=== PATIENT | female | born 1980 | race Caucasian/White ===

== ENCOUNTER 2024-09-29 10:57 | Emergency (ER) | payer BC, SELFPAY ==
[2024-09-29 11:00] VITALS: BP 128/72
--- NOTE | 2024-09-29 12:54 | ED.GENMED ---
History of Present Illness
<Carole Humphrey DO, Resident - Last Filed: 09/30/24 06:01>
General
Chief Complaint: Headache
Time Seen by Provider: 09/29/24 12:24
Nursing documentation reviewed up to this point in time: agreed with
History of Present Illness
History of Present Illness:
Patient is a 44 year old female with PMH of migraines, presenting with left sided pressure and tingling. Patient had what she thought was a normal migraine 2 nights ago, took Excedrin and went to bed. When she woke up she felt a
pressure/tingling/'strange feeling' on the left side of her face and skull. Patient thinks that the feeling worsened this morning after she was lifting weights at the gym. Patient has never experienced this feeling before. Patient has been
experiencing migraines for 2 years, always left sided starting above her eye brow and wrapping around her eye, usually occuring at night, monthly around her menstrual period, typically resolving with Ibuprophen or Excedrin, sometimes associated with
visual aura of squiggly lines. Patient denies all other ROS.
Review of Systems
<Carole Humphrey DO, Resident - Last Filed: 09/30/24 06:01>
Review of Systems
Allergies reviewed?: Yes
All Other Systems: ROS reviewed and negative except as documented in HPI and ROS
Constitutional: Reports no symptoms
EENT: Reports no symptoms
Respiratory: Reports no symptoms
Cardiac: Reports no symptoms
ABD/GI: Reports no symptoms
: Reports no symptoms
Musculoskeletal: Reports no symptoms
Skin: Reports no symptoms
Neurological: Reports headache and other (tingling and pressure on left side of face and head)
Endocrine: Reports no symptoms
Hematologic/Lymphatic: Reports no symptoms
Psychiatric: Reports no symptoms
Phy Exam
<Carole Humphrey DO, Resident - Last Filed: 09/30/24 06:01>
General Physical Exam
General Presentation: well appearing and no apparent distress
General age: appears stated age
General Skin: warm and dry
General Habitus: normal
General Mental: alert
General Hydration: appears well hydrated
Eye Exam
Eye Exam: PERRL, EOMI, conjunctiva normal and visual moran normal
Cardiovascular Exam
Cardiovascular Exam: regular rate/rhythm
Heart Sounds: normal
Pulmonary Exam
Pulmonary Exam: lungs clear, no respiratory distress, no crackles and no wheezing
Gastrointestinal Exam
Gastrointestinal Exam: normal bowel sounds
Neurological Exam
Neurological Exam: alert, oriented x3, no motor deficits, no sensory deficits, speech normal and normal gait
Cerebellar
Cerebellar Function: normal finger to nose
Course
<Carole Humphrey DO, Resident - Last Filed: 09/30/24 06:01>
Orders/Labs/Results
Orders:
Orders
09/29/24 11:05
CT Head W/o Iv Contrast Urgent
Comment:
Reason For Exam: pressure/numbness L side of head
09/29/24 12:54
IV Insert/Care/Rem.- Treatment PRN
0.9% Sodium Chloride 500 ml [Nss] 500 ml IV BOLUS
Test Result ONCE
09/29/24 12:55
CT Neck Angio W/wo Iv Contrast Urgent
Comment:
Reason For Exam: headache left sided parasthesias
09/29/24 13:01
Complete Blood Count/With Diff Urgent
09/29/24 13:42
Test Result ONCE
09/29/24 13:44
Basic Metabolic Panel Urgent
Comprehensive Metabolic Panel Urgent
HCG, Serum Qualitative Screen Urgent
Abnormal Lab Results
09/29/24 09/29/24
13:01 13:44
MPV 10.9 H fL
(7.4-10.4)
Chloride 111 H mmol/L
(98-107)
Carbon Dioxide 21 L mmol/L
(22-30)
09/29/24 13:01
09/29/24 13:48
Vital Signs
Initial and Last Documented VS:
Initial Vital Signs
Temp Pulse Resp BP Pulse Ox
98.2 F 69 16 128/72 100
09/29/24 11:00 09/29/24 11:00 09/29/24 11:00 09/29/24 11:00 09/29/24 11:00
Last Documented Vital Signs
Temp Pulse Resp BP Pulse Ox
98.2 F 66 18 112/66 99
09/29/24 11:00 09/29/24 18:36 09/29/24 18:36 09/29/24 18:36 09/29/24 18:36
<Milo Álvarez MD - Last Filed: 09/29/24 18:30>
Orders/Labs/Results
Orders:
Orders
09/29/24 11:05
CT Head W/o Iv Contrast Urgent
Comment:
Reason For Exam: pressure/numbness L side of head
09/29/24 12:54
IV Insert/Care/Rem.- Treatment PRN
0.9% Sodium Chloride 500 ml [Nss] 500 ml IV BOLUS
Test Result ONCE
09/29/24 12:55
CT Neck Angio W/wo Iv Contrast Urgent
Comment:
Reason For Exam: headache left sided parasthesias
09/29/24 13:01
Complete Blood Count/With Diff Urgent
09/29/24 13:42
Test Result ONCE
09/29/24 13:44
Basic Metabolic Panel Urgent
Comprehensive Metabolic Panel Urgent
HCG, Serum Qualitative Screen Urgent
Abnormal Lab Results
09/29/24 09/29/24
13:01 13:44
MPV 10.9 H fL
(7.4-10.4)
Chloride 111 H mmol/L
(98-107)
Carbon Dioxide 21 L mmol/L
(22-30)
09/29/24 13:01
09/29/24 13:48
Vital Signs
Initial and Last Documented VS:
Initial Vital Signs
Temp Pulse Resp BP Pulse Ox
98.2 F 69 16 128/72 100
09/29/24 11:00 09/29/24 11:00 09/29/24 11:00 09/29/24 11:00 09/29/24 11:00
Last Documented Vital Signs
Temp Pulse Resp BP Pulse Ox
98.2 F 66 18 112/66 99
09/29/24 11:00 09/29/24 18:36 09/29/24 18:36 09/29/24 18:36 09/29/24 18:36
<Carole Humphrey DO, Resident - Last Filed: 09/30/24 06:01>
MDM/Problems Addressed
Differential Diagnosis Includes:
migraine with aura, neck arterial dissection, tension headache
MDM/Problems Addressed:
CT head showed no acute intracranial abnormality. For concern of neck arterial dissection causing unilateral facial symptoms, we ordered a CT neck w and w/o contrast
<Carole Humphrey DO, Resident - Last Filed: 09/30/24 06:01>
*Pulse Oximetry
SaO2: 100
Patient hypoxic: no
*Critical Care Note
Total Time (30-74mins, 75-104mins- exclusive of procedures): Not Applicable
<Milo Álvarez MD - Last Filed: 09/29/24 18:30>
*Radiology
Radiology exam reviewed: radiology read reviewed (No dissection. No narrowing. 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
<Milo Álvarez MD - Last Filed: 09/29/24 18:30>
Update Note
Update Note:
Patient has remained medically stable and nontoxic. Reviewed with neurology and sent them to be the report. They did not feel this was significant nor needed follow-up. Patient is not describing TIA symptoms and is in no distress. She is
currently eating a bagel. She can be discharged to follow-up. Copy of CT report given to patient
ED Attending Note
<Carole Humphrey DO, Resident - Last Filed: 09/30/24 06:01>
-
Portions of this chart may have been created with voice recognition software.� Occasional wrong word or��sound alike� substitutions may have occurred due to the inherent limitations of voice recognition software.
<Milo Álvarez MD - Last Filed: 09/29/24 18:30>
ED Attending Note
Patient seen and examined by attending physician: Yes
I performed a history and physical exam of patient and discussed management with resident, I reviewed resident's note and agree with documented findings and plan of care.: Yes
ED Attending Note:
Patient with a long history of migraines usually related to her menstrual periods. She had a migraine-like headache 2 days ago. Behind the left eye. No other neurologic symptoms no visual issues double vision gait issues numbness tingling
weakness speech issues etc. However today she did workout was lifting weights and felt some funny sensation to the left side of the face and temporal area. Not truly describing paresthesias just a fullness feeling.
On exam patient is nontoxic in no distress. Warm and dry. Perfusing well. Speech is normal. Cranial nerves II through XII intact. She has no carotid bruits. She has no neck tenderness. [id number] is normal. Gait is normal. 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
normal.
Impression is headache recently consistent with her migraine. However some new paresthesias or sensation to the left side of the face. She has good sensation clinically. Low suspicion for serious etiology although with her lifting weights feel
like dissection should be considered. This was discussed at length with the patient. If this is negative she can be discharged with symptomatic treatment to follow-up
Discharge Plan
Departure
Patient Disposition: Home (Routine Discharge)
Date of Disposition: 09/29/24
Time of Disposition: 18:29
Patient with high blood pressure during this ER visit?: No
Discharge Problem:
Left facial paresthesias, History of migraines
Instructions: Headache, Adult (DC), BLOOD PRESSURE
Referrals:
Alex Anna MD [Active, Neurology] - Next open appointment
Anna De Los Santos DO [Family Provider, Family Practice]
Activity Restrictions/Additional Instructions:
Follow-up closely with your primary physician
I would advise you follow-up with neurology for completeness. Both for this incidental CAT scan finding and for your migraines
Return immediately with any concerning symptoms including unusual or worsening headache worsening numbness tingling weakness or any other concerning symptoms
Interventions
Interventions:
*Risk Screen - Suicide Last Done: 09/29/24 11:00
*General Assessment Last Done: 09/29/24 12:57
*ED- Fall Risk Assessment Last Done: 09/29/24 12:57
*ED COVID-19 Vaccine History Last Done: 09/29/24 12:57
*Nursing Disposition Last Done: 09/29/24 18:36
ED- Neurological Assessment Last Done: 09/29/24 12:57
Discharge Date and Time
Discharge Date/Time: 09/29/24 18:36
Print Language: SYRIAC
[2024-09-29 12:57] VITALS: BMI 27.0
[2024-09-29 13:04] VITALS: BP 120/62
[2024-09-29] MEDS: NSS 500 IV (13:14)
[2024-09-29 13:26] LABS: Hematocrit 37.2 % (37.0-47.0); Hemoglobin 12.6 g/dL (12.0-16.0); Mean Corp Hgb Conc. 33.9 g/dL (33.0-37.0); Mean Corpuscular Volume 87.1 fL (81.0-99.0); Nucleated Red Blood Cells % 0 %; Platelet Count 196 10^3/uL (130-400); Red Cell Dist. Width 13.1 % (11.5-14.5)
[2024-09-29 14:18] LABS: HCG, Serum Qualitative Screen Negative
[2024-09-29 14:20] LABS: ALT (SGPT) 11 U/L (0-35); AST (SGOT) 19 U/L (14-36); Albumin 4.2 g/dl (3.5-5.0); Alkaline Phosphatase 41 U/L (38-126); Blood Urea Nitrogen 13 mg/dl (7-17); Calcium 9.1 mg/dl (8.4-10.2); Carbon Dioxide 21 mmol/L (22-30); Chloride 111 mmol/L (98-107); Estimated Creatinine Clearance 105 ml/min; Glucose 90 mg/dl (70-99); Potassium 4.3 mmol/L (3.5-5.1); Sodium 139 mmol/L (135-145); Total Protein 6.9 g/dl (6.3-8.2); eGFR > 60.00
[2024-09-29 18:36] VITALS: BP 112/66
== END 2024-09-29 18:36 | disposition home or self-care (01) ==
LOC: EMR 10:57
PROVIDERS: EMERGENCY PHYSICIAN Emergency Medicine; FAMILY PHYSICIAN Internal Medicine
DX: R20.2 Paresthesia of skin (principal); G43.909 Migraine, unspecified, not intractable, without status migrainosus
CPT/HCPCS: 99284; 96360; 96361; 70450; 70498; 80048; 80053; 84703; 85025; Q9967